=== PATIENT | female | born 1965 | race African-American/Black ===

== ENCOUNTER → 2019-04-28 | Outpatient (CLI) | payer OTHER ==
--- NOTE | 2019-04-28 10:59 | RAD ---
EXAM: Left knee, 2 views; left shoulder, 3 views. HISTORY: Pain. COMPARISON: None. FINDINGS: Left knee: 2 views of the left knee are obtained. There is a left knee arthroplasty in expected position. There is no evidence of prosthesis loosening or periprosthetic fracture. There is a small joint effusion. There is a chronic corticated bone fragment anterior to the tibial plateau. Left shoulder: 3 views of the left shoulder obtained. There is a reverse left shoulder arthroplasty in expected position. There has been distal clavicular resection. IMPRESSION: 1. No acute osseous finding. 2. Small left knee effusion. 3. Left knee and left shoulder arthroplasties in expected position. Electronically signed by: Sameera Art MD (04/28/2019 10:57 AM) [id number]
== END | disposition home or self-care (01) ==
LOC: RAD 09:38
PROVIDERS: ATTEND Surgery
DX: M25.462 Effusion, left knee (principal); M25.412 Effusion, left shoulder; Z96.612 Presence of left artificial shoulder joint
CPT/HCPCS: 73030; 73560